=== PATIENT | male | born 1985 | race American Indian/Alaskan Native ===

== ENCOUNTER 2020-02-12 13:59 | Emergency (ER) | payer SELFPAY ==
[2020-02-12] MEDS ORDERED: ASPIRIN 325 MG TAB PO ONE (14:12)
--- NOTE | 2020-02-12 14:57 | XRay Report ---
CHEST 1 VIEW INDICATION / CLINICAL INFORMATION: Chest Pain. COMPARISON: None available. FINDINGS: SUPPORT DEVICES: None. HEART / MEDIASTINUM: No significant abnormality. LUNGS / PLEURA: No significant pulmonary or pleural abnormality. No pneumothorax. ADDITIONAL FINDINGS: No significant additional findings. IMPRESSION: No significant abnormality Signer Name: Dennis Leyva MD FACR Signed: 02/12/2020 2:52 PM Workstation Name: [id number]
--- NOTE | 2020-02-12 15:07 | Cat Scan Report ---
CT BRAIN: 02/12/2020 INDICATION / CLINICAL INFORMATION: Persistent dizziness. COMPARISON: None available. FINDINGS: BRAIN/INTRACRANIAL STRUCTURES: Unenhanced CT images of the brain demonstrate no evidence of acute int racranial abnormality. There are focal areas of chronic appearing hypoattenuation located in the region of the left thalamus and right centrum semiovale, as well as in the right central lucio. These findings may be associated with chronic small vessel ischemic change or demyelination. There is no evidence of hemorrhage. There are no abnormal extra-axial fluid collections. EXTRACRANIAL STRUCTURES: Incidental note is made of opacification of the right maxillary sinus. Paran qasim sinuses are otherwise clear. IMPRESSION: No definite evidence of acute abnormality. Chronic appearing white matter and thalamic hypodensities . All CT scans at this location are performed using dose reduction to ALARA by means of automated expos ure control. Signer Name: Jonnie Ramirez MD Signed: 02/12/2020 3:02 PM Workstation Name: [id number]
[2020-02-12 15:33] LABS: BUN/Creatinine Ratio 13; Blood Urea Nitrogen 13 mg/dL (9-20); Calcium 9.5 mg/dL (8.4-10.2); Hemolysis Index 6
[2020-02-12 15:38] LABS: Basophils # (Auto) 0.1 K/mm3 (0.0-0.1); Basophils % (Auto) 0.7 % (0.0-1.8); Eosinophils % (Auto) 0.3 % (0.0-4.3); Hematocrit 43.9 % (35.5-45.6); Hemoglobin 14.9 gm/dl (11.8-15.2); Lymphocytes # (Auto) 1.7 K/mm3 (1.2-5.4); Mean Corpuscular HGB Conc 34 % (32-34); Mean Corpuscular Volume 91 fl (84-94); Monocytes # (Auto) 0.7 K/mm3 (0.0-0.8); Monocytes % (Auto) 6.8 % (0.0-7.3); Platelet Count 184 K/mm3 (140-440); Red Blood Count 4.84 M/mm3 (3.65-5.03); Red Cell Distribution Width 14.5 % (13.2-15.2)
[2020-02-12] MEDS ORDERED: ONDANSETRON 4 MG/2 ML INJ IV ONE (17:07)
[2020-02-12] MEDS ORDERED: SODIUM CHLORIDE 0.9% 1000 ML 1,000 ML IV ONE (17:07)
[2020-02-12] MEDS ORDERED: ASPIRIN 325 MG TAB ONE (17:17)
--- NOTE | 2020-02-12 17:22 | Emergency Department Report ---
ED Dizziness HPI - General Chief Complaint: High BP Stated Complaint: HBP Time Seen by Provider: 02/12/20 16:57 Source: patient Mode of arrival: Ambulatory Limitations: No Limitations - History of Present Illness Initial Comments: Chief complaint:"I was dizzy. I am worried about my blood pressure." HPI: This is a 34-year-old male with history of hypertension tobacco dependence and medication noncompliance who presents with lightheadedness vomiting for the past 2 days. For 2 days he has noticed lightheadedness and generalized weakness. Mild malaise and fatigue. No known sick contacts. He denies fever. On yesterday he developed vomiting. No known history of diabetes. He denies headache. Denies blurred vision. Denies chest pain. Denies abdominal pain. MD Complaint: lightheadedness -: Gradual, days(s) (2) Timing: gradual onset Description: lightheadedness History of Same: No History of Trauma: No Severity: moderate Improves With: rest Worsens With: movement, exertion Associated Symptoms: malaise, other (Vomiting) - Related Data Previous Rx's Medication Instructions Recorded Last Taken Type HYDROcodone/APAP 5-325 [Roberts 1 each PO Q6HR PRN #16 tablet 04/10/16 Unknown Rx 5/325] amLODIPine 5 mg PO DAILY #30 tab 02/12/20 Unknown Rx hydroCHLOROthiazide [HCTZ] 25 mg PO QDAY #30 tablet 02/12/20 Unknown Rx Allergies Allergy/AdvReac Type Severity Reaction Status Date / Time No Known Allergies Allergy Verified 02/12/20 13:59 ED Review of Systems ROS: Stated complaint: HBP Other details as noted in HPI Comment: All other systems reviewed and negative Constitutional: malaise. denies: fever Respiratory: denies: cough, shortness of breath Cardiovascular: denies: chest pain Gastrointestinal: nausea, vomiting. denies: abdominal pain, diarrhea ED Past Medical Hx - Past Medical History Previous Medical History?: Yes Hx Hypertension: Yes (noncompliant) - Surgical History Past Surgical History?: No - Social History Smoking Status: Current Every Day Smoker Substance Use Type: None - Medications Home Medications: Home Medications Medication Instructions Recorded Confirmed Last Taken Type HYDROcodone/APAP 5-325 [Roberts 1 each PO Q6HR PRN #16 tablet 16 Unknown Rx 5/325] amLODIPine 5 mg PO DAILY #30 tab 02/12/20 Unknown Rx hydroCHLOROthiazide [HCTZ] 25 mg PO QDAY #30 tablet 02/12/20 Unknown Rx ED Physical Exam - General Limitations: No Limitations General appearance: alert, in no apparent distress, other (Appears mildly ill, appears uncomfortable) - Head Head exam: Present: atraumatic, normocephalic - Eye Eye exam: Present: normal appearance - ENT ENT exam: Present: mucous membranes moist - Neck Neck exam: Present: normal inspection, full ROM - Respiratory Respiratory exam: Present: normal lung sounds bilaterally. Absent: respiratory distress, wheezes, rales, rhonchi - Cardiovascular Cardiovascular Exam: Present: regular rate, normal rhythm, normal heart sounds. Absent: systolic murmur, diastolic murmur, rubs, gallop - GI/Abdominal GI/Abdominal exam: Present: soft, normal bowel sounds. Absent: distended, tenderness, guarding, rebound - Rectal Rectal exam: Present: deferred - Extremities Exam Extremities exam: Present: normal inspection - Neurological Exam Neurological exam: Present: alert, oriented X3 - Psychiatric Psychiatric exam: Present: normal affect, normal mood - Skin Skin exam: Present: warm, dry, intact, normal color. Absent: rash ED Course Vital Signs 02/12/20 02/12/20 02/12/20 14:05 17:30 18:00 Temperature 98.3 F Pulse Rate 78 67 96 H Respiratory 20 24 30 H Rate Blood Pressure 189/125 185/132 Blood Pressure 203/149 [Right] O2 Sat by Pulse 100 98 92 Oximetry 02/12/20 02/12/20 18:31 19:00 Temperature Pulse Rate 70 77 Respiratory 23 33 H Rate Blood Pressure 165/115 160/121 Blood Pressure [Right] O2 Sat by Pulse 93 99 Oximetry ED Medical Decision Making - Lab Data Result diagrams: 02/12/20 14:59 02/12/20 14:59 Laboratory Results - last 24 hr 02/12/20 02/12/20 14:59 14:59 WBC 9.8 RBC 4.84 Hgb 14.9 Hct 43.9 MCV 91 MCH 31 MCHC 34 RDW 14.5 Plt Count 184 Lymph % (Auto) 17.0 Bartholomew % (Auto) 6.8 Eos % (Auto) 0.3 Baso % (Auto) 0.7 Lymph # (Auto) 1.7 Bartholomew # (Auto) 0.7 Eos # (Auto) 0.0 Baso # (Auto) 0.1 Seg Neutrophils % 75.2 H Seg Neutrophils # 7.3 Sodium 139 Potassium 4.1 Chloride 101.1 Carbon Dioxide 25 Anion Gap 17 BUN 13 Creatinine 1.0 Estimated GFR > 60 BUN/Creatinine Ratio 13 Glucose 97 Calcium 9.5 Troponin T < 0.010 - EKG Data -: EKG Interpreted by [facility] EKG shows normal: sinus rhythm, axis Rate: normal - EKG Data Interpretation: nonspecific ST-T wave tao, LVH 02/12/20 17:21 EKG obtained 1412 Normal sinus rhythm rate 80 bpm normal axis prolonged QTC positive LVH. + Repolarization normality - Radiology Data Radiology results: report reviewed, image reviewed CHEST 1 VIEW INDICATION / CLINICAL INFORMATION: Chest Pain. COMPARISON: None available. FINDINGS: SUPPORT DEVICES: None. HEART / MEDIASTINUM: No significant abnormality. LUNGS / PLEURA: No significant pulmonary or pleural abnormality. No pneumothorax. ADDITIONAL FINDINGS: No significant additional findings. IMPRESSION: No significant abnormality - Medical Decision Making Mr. Rod presents with fatigue lightheadedness vomiting as well as severe hypertension. 1. Lightheadedness fatigue malaise vomiting attributed to early viral syndrome dehydration. No indication of CVA or hyperglycemia. Patient felt much better after receiving IV fluid therapy and IV antiemetic 2. Hypertensive urgency due to noncompliance: Patient has severe hypertension. No evidence of endorgan damage. Patient given extensive verbal and written education. I prescribed amlodipine hydrochlorothiazide. Blood pressure improved with p.o. labetalol provided in the emergency department. 3. CT head ordered per triage provider. CT head revealed chronic white matter changes. No intracranial hemorrhage. Also right maxillary sinus opacification which appears to be an incidental finding. Patient is symptom patient does not have symptoms of acute sinusitis. Vital Signs - 24 hr 02/12/20 02/12/20 02/12/20 14:05 17:30 18:00 Temperature 98.3 F Pulse Rate 78 67 96 H Respiratory 20 24 30 H Rate Blood Pressure 189/125 185/132 Blood Pressure 203/149 [Right] O2 Sat by Pulse 100 98 92 Oximetry 02/12/20 02/12/20 18:31 19:00 Temperature Pulse Rate 70 77 Respiratory 23 33 H Rate Blood Pressure 165/115 160/121 Blood Pressure [Right] O2 Sat by Pulse 93 99 Oximetry Critical care attestation.: If time is entered above; I have spent that time in minutes in the direct care of this critically ill patient, excluding procedure time. ED Disposition Clinical Impression: Hypertensive urgency, Dehydration Disposition: DC-01 TO HOME OR SELFCARE Is pt being admited?: No Does the pt Need Aspirin: No Condition: Stable Instructions: Hypertension (ED) Prescriptions: amLODIPine 5 mg PO DAILY #30 tab hydroCHLOROthiazide [HCTZ] 25 mg PO QDAY #30 tablet Referrals: MARK BRANDT MD [Staff Physician] - 3-5 Days
[2020-02-12 20:19] VITALS: BP 168/117
== END 2020-02-12 20:25 | disposition home or self-care (01) ==
LOC: ED 13:59
DX: I16.0 Hypertensive urgency (principal); E86.0 Dehydration; I10 Essential (primary) hypertension; F17.200 Nicotine dependence, unspecified, uncomplicated; Z79.899 Other long term (current) drug therapy
CPT/HCPCS: 36415; 70450; 71046; 80048; 84484; 85025; 93005; 96361; 96374; 99285; J2405; J7030